=== PATIENT | female | born 2000 | race Caucasian/White ===

== ENCOUNTER 2021-06-03 17:55 | Outpatient (CLI) | payer OTHER, SELFPAY ==
[2021-06-03 18:15] LABS: SARS-CoV-2 Ag Negative (Negative)
== END 2021-06-03 17:56 | disposition home or self-care (01) ==
LOC: CHSLAB 17:59
PROVIDERS: PCP Internal Medicine; Visit Provider Internal Medicine
DX: Z20.822 Contact with and (suspected) exposure to COVID-19 (principal)
CPT/HCPCS: 87426; C9803